=== PATIENT | female | born 2000 | race Two or more races ===

== ENCOUNTER 2025-02-21 12:50 | Emergency (ER) | payer MEDICAID, SELFPAY ==
[2025-02-21 13:07] VITALS: BP 112/74; PULSE 75; RESP 18; TEMP 37.6; O2SAT 98; BMI 34.0
--- NOTE | 2025-02-21 13:12 | EDNOTE_ITS ---
ED Ear RME/HPI General Chief complaint: Ear Stated complaint: LEFT EAR PAIN/ INFECTION X LAST NIGHT Time Seen by Provider: 02/21/25 12:58 Arrival date/time: 02/21/25 12:50 25-year-old female presents to the emergency department today for complaints of left ear pain, infection Limitations: no limitations Related Data Home Medications ?Medication ?Instructions ?Recorded ?Confirmed vitamins-iron fumarate 27 1 tab PO QDAY 08/0508/20/19 mg iron-folic acid 0.8 mg tablet ( Vitamin) Previous Rx's ?Medication ?Instructions ?Recorded cephalexin 500 mg capsule 500 mg PO BID #20 caps 05/06 acetaminophen 500 mg capsule 1,000 mg (2 x 500 mg) PO Q8HR PRN 09/17/22 pain #60 caps acetaminophen 500 mg capsule 1,000 mg (2 x 500 mg) PO Q8HR PRN 11/09/22 pain #60 caps benzonatate 100 mg capsule 100 mg PO TID #14 caps 03/26 ibuprofen 800 mg tablet 800 mg PO TID PRN pain #30 t abs 11/09/22 azithromycin 250 mg tablet See Rx Instructions PO .COM PLEX #6 02/08/24 (Zithromax Z-Dom) tabs acetaminophen 500 mg capsule 1,000 mg (2 x 500 mg) PO Q8HR PRN 02/21/25 pain #30 caps amoxicillin 875 mg-potassium 1 tab PO BID 7 days #14 t abs 02/21/25 clavulanate 125 mg tablet ofloxacin 0.3 % ear drops 10 drop otic (ear) QDAY 10 d ays 02/21/25 #10 mL Allergies Allergy/AdvReac Type Severity Reaction Status Date / Time No Known Allergies Allergy Verified 02/21/25 12:52 Review of Systems Review of Systems Systems Reviewed: All systems reviewed, normal except as documented Constitutional Constitutional: Reports system reviewed and no additional complaints, except as documented, Denies fever(s) and Denies headache(s) Eyes Eyes: Reports system reviewed and no additional complaints, except as documented and Denies blurry vision ENT Ears, Nose, Mouth, and Throat: Reports system reviewed and no additional complaints, except as documented, Reports ear discharge, Reports otalgia, Denies headache(s), Denies nasal congestion and Denies nasal discharge Cardiovascular Cardiovascular: Reports system reviewed and no additional complaints, except as documented, Denies chest pain and Denies dyspnea Respiratory Respiratory: Reports system reviewed and no additional complaints, except as documented, Denies chest congestion, Denies cough and Denies dyspnea Gastrointestinal Gastrointestinal: Reports system reviewed and no additional complaints, except as documented and Denies abdominal pain Integumentary/Breasts Skin/Breast: Reports system reviewed and no additional complaints, except as documented and Denies rash Neurologic Neurologic: Reports system reviewed and no additional complaints, except as documented, Reports as per HPI and Denies headache(s) Past Medical History Past Medical History NEUROLOGIC: Negative Neurological Disorders CARDIAC: Negative Cardiac Disorders or Congestive Heart Failure RESPIRATORY: Negative Chronic Obstructive Pulmonary Disease (COPD) GASTROINTESTINAL: Positive Gastroesophageal Reflux Disease; Negative Gastrointestinal Disorders, Hepatitis or Colorectal Cancer GENITOURINARY: Positive Genitourinary Disorders; Negative Renal Disease or Prostate Cancer REPRODUCTIVE: Negative Breast Cancer, Endometriosis, Pelvic Inflammatory Disease, Previous Pregnancies, Testicular Cancer or Uterine Prolapse MUSCULOSKELETAL: Negative Musculoskeletal Disorders or Bone Cancer ENDOCRINE: Negative Endocrine Disorders, Diabetes Mellitus Type 1 or Diabetes Mellitus Type 2 HEMATOLOGIC: Negative Blood Disorders or Anemia OTHER HISTORY: Negative Hospitalization, Autoimmune Disease, Down Syndrome, Developmental Delay, Shingles, Falls, Blood Transfusions, Blood Transfusion Reaction, Anesthesia Reactions, Organ Transplant, Chemotherapy, Radiation Therapy, Hyperbaric Therapy, MRSA, VRSA, Vancomycin-Resistant Enterococci, Human Immunodeficiency Virus (HIV), Chicken Pox, Measles, Mumps, Rubella ([place] Measles), Pertussis, Clostridium Difficile, Cancer, Breast Cancer, Cervical Cancer, Colorectal Cancer, Lung Cancer, Ovarian Cancer, Prostate Cancer or Testicular Cancer Family History FAMILY HISTORY: Negative Family Psychiatric Problems, Family Respiratory Disorders, Family Cardiac Disorders, Family Gastrointestinal Problems, Family Cancer, Family Surgery or Family Anesthesia Reaction Surgical History SURGICAL: Negative Section or Organ Transplant Social History SMOKING STATUS: Never smoker ED Exam General Limitations: Present no limitations General appearance: Present alert and in no apparent distress Head Head exam: Present atraumatic, normocephalic and normal inspection Eye Eye exam: Present normal appearance, PERRL and EOMI; Absent conjunctival injection ENT ENT exam: Present normal exam, normal oropharynx and mucous membranes moist Neck Neck exam: Present normal inspection, full ROM and trachea midline Chest Chest inspection: Present normal inspection and symmetric chest wall rise Respiratory Respiratory exam: Present normal lung sounds bilaterally; Absent respiratory distress Cardiovascular Cardiovascular exam: Present regular rate, normal rhythm and normal heart sounds Abdominal Exam Abdominal exam: Present soft and normal bowel sounds Extremities Exam Extremities exam: Present normal inspection and full ROM Back Exam Back exam: Present normal inspection and full ROM Neurological Exam Neurological exam: Present alert, oriented X3 and CN II-XII intact Psychiatric Psychiatric exam: Present normal affect and normal mood Skin Skin exam: Present warm, dry, intact and normal color Course Quality Measures none Vital Signs Vital signs: Vital Signs Temperature 99.6 F 02/21/25 13:07 Pulse Rate 75 02/21/25 13:07 Respiratory Rate 18 02/21/25 13:07 Blood Pressure 112/74 02/21/25 13:07 Pulse Oximetry (%) 98 02/21/25 13:07 Oxygen Delivery Method Room Air 02/21/25 13:07 O2 saturation 98% on room air within the limits Ear Patient data External records reviewed:: [facility] previous records Clinical information provided by:: patient Social determinants that could affect healthcare access:: none Patient has the following chronic illnesses:: None How is presenting disease/condition affected by chronic disease/condition?: no chronic disease Evaluation data The following diagnostics were reviewed and interpreted by me:: other (specify) Lab and/or radiology exams considered but not ordered:: Consider not ordered Interpretation Summary: N/A Medications / Prescriptions Medications or Prescriptions considered but not ordered:: Given Medication administrations:: Given Consultations Consultation(s) initiated? (list below): No Diagnosis Most likely diagnosis given after review of the tests above:: Otitis externa left Admission Indicated Admission indicated?: not indicated Admission Request Was there a request for admission?: No Disposition Plan Disposition Plan: Discharge Discharge Attestation Discharge Attestation: The patient and all family members were given an opportunity to ask questions and understood the discharge instructions. Discharge instructions specifically effects, indications for sooner follow up or return to the emergency department, and the expected course of current diagnosis. Patient condition: Stable Medical Decision Making MDM Narrative MDM Narrative: 25-year-old female presents to the emergency department today for complaints of left ear pain, infection, patient reports no headache dizziness or weakness. Patient reports onset of symptoms last night On exam patient does not appear ill or toxic in no acute distress patient does have left otitis externa Patient be treated the course of antibiotics and pain medication Patient discharged home in no distress to follow-up with primary care doctor in the next 24 to 48 hours and for any worsening symptoms to return to the ER imme diately Differential Diagnosis Differential Diagnosis: Otitis media, otitis externa Medical Records Medical records reviewed: Yes I reviewed the patient's medical records. Discharge Plan Plan Patient Disposition: HOME (Self Care) Discharge Disposition comment: Stable Prescriptions/Referrals Prescriptions/Med Rec: New acetaminophen 500 mg capsule 1,000 mg PO Q8HR PRN (Reason: pain) Qty: 30 0RF amoxicillin-pot clavulanate 875-125 mg tablet 1 tab PO BID 7 Days Qty: 14 0RF ofloxacin 0.3 % drops 10 drop otic (ear) QDAY 10 Days Qty: 10 0RF No Action cephalexin 500 mg capsule 500 mg PO BID Qty: 20 0RF Vitamin 27 mg iron- 0.8 mg Tablet 1 tab PO QDAY acetaminophen 500 mg capsule 1,000 mg PO Q8HR PRN (Reason: pain) Qty: 60 0RF ibuprofen 800 mg tablet 800 mg PO TID PRN (Reason: pain) Qty: 30 0RF acetaminophen 500 mg capsule 1,000 mg PO Q8HR PRN (Reason: pain) Qty: 60 0RF benzonatate 100 mg capsule 100 mg PO TID Qty: 14 0RF azithromycin [Zithromax Z-Dom] 250 mg tablet See Rx Instructions .ROUTE .COMPLEX Qty: 6 0RF Rx Instructions: For 250 mg dose pack: take 500 mg today (day 1), then 250 mg for 4 days (days 2-5) Problem List Clinical Impression: Otitis externa of left ear Patient/Caregiver Discharge Instructions Education Materials: Anatomy of the Ear Additional Instructions: Please follow up with your primary care doctor in the next 24-48hrs for any worsening symptoms return here immediately Print Language: Wallisian Stand Alone Forms: [facility] Award Info., Patient Portal Info Letter PA/LOADER OPERATOR/GROUND LEADER Supervising Physician PA/LOADER OPERATOR/GROUND LEADER Supervising Physician: Dr evangelista
== END 2025-02-21 13:25 | disposition home or self-care (01) ==
PROVIDERS: Emergency Provider Emergency Medicine
DX: H60.92 Unspecified otitis externa, left ear (principal)
CPT/HCPCS: 99281

== ENCOUNTER 2025-06-19 23:55 | Emergency (ER) | payer MEDICAID, SELFPAY ==
[2025-06-19 23:56] VITALS: BMI 32.3
[2025-06-20 00:31] VITALS: BP 120/77; PULSE 62; RESP 18; TEMP 37.6; O2SAT 96
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
[2025-06-20] MEDS: HYDROcodone/APAP 5/325 TABLET 1 TAB PO (00:42)
== END 2025-06-20 00:44 | disposition home or self-care (01) ==
LOC: SERX 06-20 00:54
PROVIDERS: Emergency Provider Emergency Medicine; PCP Family Medicine
DX: T20.40XA Corrosion of unspecified degree of head, face, and neck, unspecified site, initial encounter (principal); T23.401A Corrosion of unspecified degree of right hand, unspecified site, initial encounter
CPT/HCPCS: 99282; A9270

== ENCOUNTER 2025-08-19 23:09 | Emergency (ER) | payer MEDICAID, SELFPAY ==
[2025-08-19 23:10] VITALS: BMI 32.3
[2025-08-19 23:14] VITALS: BP 122/76; PULSE 92; RESP 18; TEMP 37.2; O2SAT 98
--- NOTE | 2025-08-19 23:17 | XR_ITS ---
EXAMINATION: PA chest single view TECHNIQUE: Upright PA chest single view Date and time: August 19, 2025, 11:22 p.m., comparison February 08, 2024 INDICATIONS: Cough and congestion beginning 3 days ago. FINDINGS: Normal heart size Lungs are clear The osseous structures are intact IMPRESSION: No active disease
--- NOTE | 2025-08-19 23:17 | EKG_ITS ---
[facility] Test Date: 2025-08-19 Pat Name: CHELO SANTIZO Department: Room: - Gender: Female Operations Specialist: : 2000 Requested By: Neri Puckett Order Number: [id number] Reading MD: Neri Puckett Measurements Intervals [place] Rate: 99 P: 42 [place]: 155 QRS: 2 QRSD: 96 T: 29 QT: 331 QTc: 426 Interpretive Statements SINUS RHYTHM No previous ECG available for comparison /store/S0/[id number]/ecg/[id number].pdf
[2025-08-19 23:53] LABS: Influenza A Ag Negative; Influenza B Ag Negative
[2025-08-20] LABS: Basophils # (Auto) 0.1 Thou/mm3 (0.0-0.2); Basophils % (Auto) 1 % (0-2.5); Eosinophils # (Auto) 0.1 Thou/mm3 (0.0-0.5); Eosinophils % (Auto) 1 % (0-10); Hematocrit 40.5 % (36.0-46.0); Hemoglobin 13.7 g/dL (12.0-16.0); Immature Granulocytes Auto 0.04 Thou/mm3 (0.00-0.00); Lymphocytes # (Auto) 2.1 Thou/mm3 (1.0-4.8); Lymphocytes % (Auto) 29 % (10-50); Mean Corpuscular HGB Conc 33.8 g/dl (31.0-37.0); Mean Corpuscular Hemoglobin 28.5 pg (25.0-35.0); Mean Corpuscular Volume 84 fL (80-100); Monocytes # (Auto) 0.6 Thou/mm3 (0.0-0.8); Monocytes % (Auto) 8 % (0-12); Neutrophils # (Auto) 4.4 Thou/mm3 (1.8-7.7); Neutrophils % (Auto) 61 % (37-80); Nucleated Red Blood Cell # 0.00 Thou/mm3 (0.00-0.00); Nucleated Red Blood Cell % 0 /100 WBC (0); Platelet Count 345 Thou/mm3 (140-440); RDW Standard Deviation 39.3 fL (36.4-46.3); Red Blood Count 4.80 Miln/mm3 (4.00-5.20); White Blood Count 7.2 Thou/mm3 (3.6-11.0)
[2025-08-20 00:04] LABS: Collection Type, Urine Clean Catch
[2025-08-20 00:05] LABS: Alanine Aminotransferase 22 U/L (10-49); Albumin, Serum 5.2 gm/dL (3.5-5.0); Albumin/Globulin Ratio 2.5 (1.2-2.2); Alkaline Phosphatase 116 U/L (46-116); Anion Gap 11 (7-16); Aspartate Amino Transferase 18 U/L (0-34); BUN/Creatinine Ratio 17 Ratio (12-20); Bilirubin,Total 0.5 mg/dL (0.3-1.2); Blood Urea Nitrogen 10 mg/dL (9-23); Calcium 9.5 mg/dL (8.3-10.6); Calcium (Corrected) 9.5 mg/dL (8.5-10.1); Carbon Dioxide 25.5 mMol/L (20.0-31.0); Chloride 106 mMol/L (98-107); Creatinine (Component) 0.6 mg/dL (0.6-1.3); Estimated Creatinine Clearance 159.8 mL/min (>60); Globulin 2.1 gm/dL (2.3-3.5); Glucose 126 mg/dL (74-106); Osmolality,Calculated 284 (275-295); Potassium 3.9 mMol/L (3.4-5.1); Sodium 142 mMol/L (136-145); Total Protein 7.3 gm/dL (5.7-8.2); Troponin I < 0.020 ng/mL (0.0-0.045); eGFR > 60 See Note
[2025-08-20 00:08] LABS: Bilirubin,Urine Negative (Negative); Blood,Urine Negative (Negative); Clarity,Urine Clear (Clear/Hazy); Color,Urine Lt-Yellow (Lt Yel-Yel); Glucose, Urine Negative (Negative); Ketones,Urine Negative (Negative); Leukocyte Esterase,Urine Negative (Negative); Nitrite,Urine Negative (Negative); PH,Urine 6.0 (5.0-7.0); Protein,Urine Negative (Neg - Trace); RBC,Urine 1 /hpf (0-3); Specific Gravity,Urine 1.024 (1.001-1.035); Squamous Epithelial Cell,Urine 3 /hpf (0-5); Urobilinogen,Urine Negative mg/dL (0.0-1.0); WBC,Urine 1 /hpf (0-5)
[2025-08-20 00:12] LABS: HCG Qualitative,Urine Negative
--- NOTE | 2025-08-20 00:27 | EDNOTE_ITS ---
Upper Respiratory Inf. RME/HPI General Chief Complaint: Flu Like Symptoms Stated Complaint: COUGH,RUNNY NOSE,SORE THROAT,CP Time Seen by Provider: 08/19/25 23:17 Arrival date/time: 08/19/25 23:09 This is a case of 25-year-old female with history of pneumonia came in in the emergency room due to on and off productive cough for 1 week associated with nasal congestion and sore throat worsening of the symptoms now with midsternal pleuritic chest pain this patient decided to sought consult here in the emergency room Limitations: no limitations Related Data Home Medications ?Medication ?Instructions ?Recorded ?Confirmed vitamins-iron fumarate 27 1 tab PO QDAY 08/0508/20/19 mg iron-folic acid 0.8 mg tablet ( Vitamin) Previous Rx's ?Medication ?Instructions ?Recorded cephalexin 500 mg capsule 500 mg PO BID #20 caps 05/06 acetaminophen 500 mg capsule 1,000 mg (2 x 500 mg) PO Q8HR PRN 09/17/22 pain #60 caps acetaminophen 500 mg capsule 1,000 mg (2 x 500 mg) PO Q8HR PRN 11/09/22 pain #60 caps benzonatate 100 mg capsule 100 mg PO TID #14 caps 03/26 ibuprofen 800 mg tablet 800 mg PO TID PRN pain #30 t abs 11/09/22 azithromycin 250 mg tablet See Rx Instructions PO .COM PLEX #6 02/08/24 (Zithromax Z-Dom) tabs acetaminophen 500 mg capsule 1,000 mg (2 x 500 mg) PO Q8HR PRN 02/21/25 pain #30 caps albuterol sulfate 90 mcg/actuation 2 puff inhalation Q 6H PRN 08/20/25 aerosol inhaler (Ventolin HFA) shortness of breath or wheezing #8.5 grams amoxicillin 875 mg-potassium 1 tab PO BID #20 tabs clavulanate 125 mg tablet prednisone 20 mg tablet See Taper PO QDAY 5 days #5 tabs 08/20/25 promethazine-DM 6.25 mg-15 mg/5 mL 5 ml PO Q6H PRN cou gh #118 mL 08/20/25 oral syrup Allergies Allergy/AdvReac Type Severity Reaction Status Date / Time No Known Allergies Allergy Verified 08/19/25 23:10 Review of Systems Review of Systems Systems Reviewed: All systems reviewed, normal except as documented Constitutional Constitutional: Reports system reviewed and no additional complaints, except as documented and Reports as per HPI ENT Ears, Nose, Mouth, and Throat: Reports system reviewed and no additional complaints, except as documented and Reports as per HPI Cardiovascular Cardiovascular: Reports system reviewed and no additional complaints, except as documented and Reports as per HPI Respiratory Respiratory: Reports system reviewed and no additional complaints, except as documented and Reports as per HPI Gastrointestinal Gastrointestinal: Reports system reviewed and no additional complaints, except as documented and Reports as per HPI Musculoskeletal Musculoskeletal: Reports system reviewed and no additional complaints, except as documented and Reports as per HPI Neurologic Neurologic: Reports system reviewed and no additional complaints, except as documented and Reports as per HPI Past Medical History Past Medical History NEUROLOGIC: Negative Neurological Disorders CARDIAC: Negative Cardiac Disorders or Congestive Heart Failure RESPIRATORY: Negative Chronic Obstructive Pulmonary Disease (COPD) GASTROINTESTINAL: Positive Gastroesophageal Reflux Disease; Negative Gastrointestinal Disorders, Hepatitis or Colorectal Cancer GENITOURINARY: Positive Genitourinary Disorders; Negative Renal Disease or Prostate Cancer REPRODUCTIVE: Negative Breast Cancer, Endometriosis, Pelvic Inflammatory Disease, Previous Pregnancies, Testicular Cancer or Uterine Prolapse MUSCULOSKELETAL: Negative Musculoskeletal Disorders or Bone Cancer ENDOCRINE: Negative Endocrine Disorders, Diabetes Mellitus Type 1 or Diabetes Mellitus Type 2 HEMATOLOGIC: Negative Blood Disorders or Anemia OTHER HISTORY: Negative Hospitalization, Autoimmune Disease, Down Syndrome, Developmental Delay, Shingles, Falls, Blood Transfusions, Blood Transfusion Reaction, Anesthesia Reactions, Organ Transplant, Chemotherapy, Radiation Therapy, Hyperbaric Therapy, MRSA, VRSA, Vancomycin-Resistant Enterococci, Human Immunodeficiency Virus (HIV), Chicken Pox, Measles, Mumps, Rubella (Finnish Measles), Pertussis, Clostridium Difficile, Cancer, Breast Cancer, Cervical Cancer, Colorectal Cancer, Lung Cancer, Ovarian Cancer, Prostate Cancer or Testicular Cancer Family History FAMILY HISTORY: Negative Family Psychiatric Problems, Family Respiratory Disorders, Family Cardiac Disorders, Family Gastrointestinal Problems, Family Cancer, Family Surgery or Family Anesthesia Reaction Surgical History SURGICAL: Negative Section or Organ Transplant Social History SMOKING STATUS: Never smoker ED Exam General Limitations: Present no limitations General appearance: Present alert, in no apparent distress and other (Is awake alert oriented not in distress nontoxic looking well-hydrated well-nourished) Head Head exam: Present atraumatic, normocephalic and normal inspection Eye Eye exam: Present normal appearance, PERRL and EOMI ENT ENT exam: Present normal exam, normal oropharynx, mucous membranes moist and other (Normal HEENT exam) Neck Neck exam: Present normal inspection, full ROM and trachea midline; Absent tenderness, meningismus, lymphadenopathy or thyromegaly Chest Chest inspection: Present normal inspection and symmetric chest wall rise; Absent tenderness Respiratory Respiratory exam: Present normal lung sounds bilaterally and wheezes (Wheezing both lower lung field no crackles no rales or retraction no stridor); Absent respiratory distress, stridor, accessory muscle use or prolonged expiratory phase Cardiovascular Cardiovascular exam: Present regular rate, normal rhythm and normal heart sounds; Absent bradycardia, tachycardia, irregular rhythm, systolic murmur or diastolic murmur Abdominal Exam Abdominal exam: Present soft and normal bowel sounds; Absent distention, tenderness, guarding, rebound, rigidity, diminished bowel sounds, hyperactive bowel sounds, hypoactive bowel sounds or organomegaly Extremities Exam Extremities exam: Present normal inspection and full ROM Back Exam Back exam: Present normal inspection and full ROM Neurological Exam Neurological exam: Present alert, oriented X3, CN II-XII intact, normal gait and reflexes normal; Absent motor sensory deficit Psychiatric Psychiatric exam: Present normal affect and normal mood Skin Skin exam: Present warm, dry, intact and normal color Course Quality Measures none Orders Category Date Time Status Bedside COVID-19 Antigen Test NOW Care 08/19/25 23:17 Active EKG (ED ONLY) *Do not use* NOW Care 08/19/25 23:18 Completed EKG (ED Only) Stat Exams 08/19/25 23:17 Draft XR chest 1V Stat Exams 08/19/25 23:17 Completed CBC Stat Lab 08/19/25 23:28 Completed Comprehensive Metabolic Panel Stat Lab 08/19/25 23:28 Completed HCG Qualitative,Urine Stat Lab 08/19/25 23:46 Completed Influenza A & B Rapid Panel Stat Lab 08/19/25 23:28 Completed Troponin I Stat Lab 08/19/25 23:28 Completed Urinalysis Stat Lab 08/19/25 23:46 Completed Albuterol/Ipratr Rt Sylvia [Duoneb Rt Sylvia] Med 08/20/25 00:22 Discontinued 3 ml INH X1 ONE Dexamethasone Inj [Decadron Inj] Med 08/20/25 00:22 Discontinued 10 mg IM X1 ONE Sodium Chloride 0.9% 1000 ml [Ns] 1,000 ml Med 08/19/25 23:42 Discontinued IV 999 mls/hr Vital Signs Vital signs: Vital Signs Temperature 98.9 F 08/19/25 23:14 Pulse Rate 92 08/19/25 23:14 Respiratory Rate 18 08/19/25 23:14 Blood Pressure 122/76 08/19/25 23:14 Pulse Oximetry (%) 98 08/19/25 23:14 Oxygen Delivery Method Room Air 08/19/25 23:14 Oxygen saturation is 98% in room air Upper Respiratory Infection MDM Narrative MDM Narrative:: This is a case of 25-year-old female with history of pneumonia came in in the emergency room due to on and off productive cough for 1 week associated with nasal congestion and sore throat worsening of the symptoms now with midsternal pleuritic chest pain this patient decided to sought consult here in the emergency room physical examination patient is awake alert oriented not in distress nontoxic looking well-hydrated well-nourished negative for meningeal sign lung sounds is wheezing both lower lung field no crackles no rales no retraction no stridor HEENT exam is normal and unremarkable heart normal rate regular rhythm no murmur no edema the rest of the physical examination neurological exam is normal and unremarkable vital signs stable BP stable not tachycardic not tachypneic afebrile and nonhypoxic patient blood test showed no leukocytosis no anemia kidney liver function is normal no electrolyte imbalance troponin is negative EKG is sinus rhythm normal chest x-ray Normal no pneumonia based on my physical examination and history patient chest pain is not cardiac in origin patient symptoms suggestive of acute bronchitis this patient was given breathing treatment of DuoNeb and dexamethasone after 1 hour patient was reassessed patient has no chest pain no shortness of breath wheezing resolved patient will follow-up with PCP in 2 days for emergency evaluation and to be referred to fitness center attendant for chest pain for possible echocardiogram stress test and Holter monitor for any recurrence persistent worsening symptoms return to the emergency room immediately or call 911 patient was prescribed with Augmentin for bronchitis Ventolin inhaler prednisone and cough medication Patient was discharged with comfortable condition walking with stable gait. Patient verbalized no further complains explained diagnosis and answered patient question. Patient is comfortable with the proposed management plan including the need to follow up with his/her primary care physician and any specialist if applicable Discussed patient for any urgent condition or worsening sx, He/She needed to go to emergency room immediately or call 911. Patient acknowledge the responsibility to follow up as instructed and to monitor her/his symptoms. For any persistence of the symptoms for more than 3-5 days return precaution advised. Discussed the result of the test and was given printed discharge instruction patient was discharged with comfortable condition walking with stable gait. Patient verbalized no further complains explained diagnosis and answered patient question. Patient data External records reviewed:: [facility] previous records Clinical information provided by:: patient Social determinants that could affect healthcare access:: none Patient has the following chronic illnesses:: None How is presenting disease/condition affected by chronic disease/condition?: no chronic disease Evaluation data The following diagnostics were reviewed and interpreted by me:: lab results, radiology exam(s) and EKG tracing(s) Lab and/or radiology exams considered but not ordered:: Reviewed Interpretation Summary: Reviewed Medications / Prescriptions Medications or Prescriptions considered but not ordered:: Given Medication administrations:: Medication Administration History Discontinued Medications Albuterol/Ipratropium (Albuterol/Ipratropium (Duoneb) Rt Sylvia 3 Ml Nebu) 3 ml INH X1 ONE Stop: 08/20/25 00:23 Dexamethasone Sodium Phosphate (Dexamethasone Sod Phos Inj 10 Mg/Ml Vial) 10 mg IM X1 ONE Stop: 08/20/25 00:23 Sodium Chloride (Ns) 1,000 mls @ 999 mls/hr IV .Q1H1M ONE Stop: 08/20/25 00:42 Last Admin: 08/20/25 00:04 Dose: Not Given Documented By: SF Non-Admin Reason: Discontinued Given Consultations Consultation(s) initiated? (list below): No Diagnosis Upper Respiratory Differential Diagnosis: upper respiratory infection, sinusitis, viral infection, bronchitis, influenza and pharyngitis Most likely diagnosis given after review of the tests above:: Acute bronchitis Admission Indicated Admission indicated?: not indicated Explain why admission is indicated or not indicated:: Not indicated Admission Request Was there a request for admission?: No Admission Attestation Admission request attestation: Not indicated Disposition Plan Disposition Plan: Discharge Discharge Attestation Discharge Attestation: The patient and all family members were given an opportunity to ask questions and understood the discharge instructions. Discharge instructions specifically effects, indications for sooner follow up or return to the emergency department, and the expected course of current diagnosis. Patient condition: Stable Discharge Plan Plan Patient Disposition: HOME (Self Care) Patient condition on transfer: Stable Prescriptions/Referrals Prescriptions/Med Rec: New amoxicillin-pot clavulanate 875-125 mg tablet 1 tab PO BID Qty: 20 0RF promethazine-DM 6.25-15 mg/5 mL syrup 5 ml PO Q6H PRN (Reason: cough) Qty: 118 0RF prednisone 20 mg tablet See Taper PO QDAY 5 Days Qty: 5 0RF Taper: Prednisone Taper 20 mg DAILY for 2 Days and 0 Hour 10 mg DAILY for 2 Days and 0 Hour 5 mg DAILY for 7 Days and 0 Hour albuterol sulfate [Ventolin HFA] 90 mcg/actuation HFA aerosol inhaler 2 puff inhalation Q6H PRN (Reason: shortness of breath or wheezing) Qty: 8.5 0RF No Action cephalexin 500 mg capsule 500 mg PO BID Qty: 20 0RF Vitamin 27 mg iron- 0.8 mg Tablet 1 tab PO QDAY acetaminophen 500 mg capsule 1,000 mg PO Q8HR PRN (Reason: pain) Qty: 30 0RF acetaminophen 500 mg capsule 1,000 mg PO Q8HR PRN (Reason: pain) Qty: 60 0RF ibuprofen 800 mg tablet 800 mg PO TID PRN (Reason: pain) Qty: 30 0RF acetaminophen 500 mg capsule 1,000 mg PO Q8HR PRN (Reason: pain) Qty: 60 0RF benzonatate 100 mg capsule 100 mg PO TID Qty: 14 0RF azithromycin [Zithromax Z-Dom] 250 mg tablet See Rx Instructions .ROUTE .COMPLEX Qty: 6 0RF Rx Instructions: For 250 mg dose pack: take 500 mg today (day 1), then 250 mg for 4 days (days 2-5) Referrals: Nick Daniels MD [Primary Care Provider, Family Practice] - In 1 week Problem List Clinical Impression: Acute bronchitis, Chest pain of unknown etiology, Pharyngitis Patient/Caregiver Discharge Instructions Education Materials: Self-Care for Sore Throats, ED Bronchitis with Wheezing (Adult), ED Chest Pain, Uncertain Cause Additional Instructions: Follow-up with your primary care physician in 2 days for reevaluation and to be referred to fitness center attendant for further evaluation and treatment of chest pain for possible echocardiogram stress test and Holter monitor recurrence persistent worsening symptoms or any emergent concern call 911 or go to the nearest emergency room take your medication as directed finish the course of antibiotic increase water intake keep hydrated warm saline gargles advised Print Language: Togolese Stand Alone Forms: Corrie Award Info., Patient Portal Info Letter PA/[employer] Supervising Physician PA/[employer] Supervising Physician: Dr. Sullivan
[2025-08-20] MEDS: DEXAMETHASONE SOD PHOS INJ 10 MG/ML VIAL IM (00:29)
[2025-08-20] MEDS: ALBUTEROL/IPRATROPIUM (Duoneb) RT SOL 3 ML NEBU INH (00:41)
[2025-08-20 00:44] VITALS: PULSE 97; RESP 18; O2SAT 100
[2025-08-20 01:02] VITALS: RESP 18
== END 2025-08-20 01:02 | disposition home or self-care (01) ==
PROVIDERS: Nurse Practitioner Family; Emergency Provider Emergency Medicine; PCP Family Medicine
DX: J20.9 Acute bronchitis, unspecified (principal)
CPT/HCPCS: 36415; 71045; 80053; 81001; 81025; 84484; 85025; 87502; 87635; 93005; 94640; 96372; 99284; A9270; J1100